=== PATIENT | female | born 1965 | race Caucasian/White ===

== ENCOUNTER 2018-06-26 19:05 | Emergency (ER) | payer OTHER ==
[~2018-06-26] VITALS: Ht 170.2 cm; Wt 163.3 kg
[~2018-06-26 19:05] MED LIST: ALBU90OI INH; ALBU90OI61 INH; ALLO100 PO; ASPI81CH PO; ASPI81EC PO; ATOR10; AZIT250 PO; AZIT500 PO; BUPR150T2; CODGUAEL PO; Cyclobenzaprine5 MG PO; DULO60 PO; ERGO50000 PO; FISH OIL PO; FISH1000 PO; FLUSAL2505 IH; GABA300 PO; GUAI600T33 PO; HYDACE5 PO; HYDACE5325 PO; HYDCHL12.5 PO; IBUP600 PO; IBUP800 PO; INSULANI SUBQ; INSULANPEN SC; LEVSOD100 PO; LEVSOD175 PO; LEVSOD200; LEVSOD50 PO; LEVSOD88 PO; LISHYD1012 PO; LISI5 PO; METF500; METF500 PO; METF500C PO; NAPR550 PO; Norco 5-325 Ta1 EACH PO; OMEG1CAP30 PO; OXYACE5T PO; PREN-16 PO; Prenatabs FA T1 EACH PO; RANI150 PO; ROSU10TA PO; RXCODGUASY PO; RXHYD5325 PO; RXNAPNA550 PO; SULTRIDS PO; VICODIN 5-3001 EACH PO; VITAMIN D22000 UNIT PO
[2018-06-26 20:07] LABS: BASOPHILS ABSOLUTE AUTO 0.05 K/mm3 (0.00-0.23); BASOPHILS PERCENT AUTO 0 % (0-2); EOSINOPHILS ABSOLUTE AUTO 0.01 K/mm3 (0.00-0.68); EOSINOPHILS PERCENT AUTO 0 % (0-6); Hematocrit 43.4 % (33.0-51.0); Hemoglobin 14.4 g/dL (11.5-16.0); IMMATURE GRAN ABSOLUTE AUTO 0.28 K/mm3 (0.00-0.10); IMMATURE GRAN PERCENT AUTO 2 % (0-1); LYMPHOCYTES ABSOLUTE AUTO 2.74 K/mm3 (0.84-5.20); LYMPHOCYTES PERCENT AUTO 21 % (21-46); MONOCYTES ABSOLUTE AUTO 0.51 K/mm3 (0.16-1.47); MONOCYTES PERCENT AUTO 4 % (4-13); Mean Corpuscular HGB 31.8 pg (26.0-34.0); Mean Corpuscular HGB Conc 33.2 g/dL (31.5-36.5); Mean Corpuscular Volume 96 fL (80-100); Mean Platelet Volume 9.1 fL (9.1-12.4); NEUTROPHILS ABSOLUTE AUTO 9.42 K/mm3 (1.96-9.15); NEUTROPHILS PERCENT AUTO 72 % (41-73); Platelet Count 342 K/mm3 (150-400); RDW Coefficient Variation 14.1 % (11.7-14.2); RDW Standard Deviation 49.1 fL (35.1-46.3); Red Blood Cell Count 4.53 M/mm3 (3.80-5.20); White Blood Cell Count 13.01 K/mm3 (4.00-11.30)
[2018-06-26 20:22] LABS: Albumin, Blood 3.7 g/dL (3.4-5.0); Albumin/Globulin Ratio 0.9 (0.8-1.8); Bilirubin, Total 0.2 mg/dL (0.1-1.0); Calcium, Blood 8.8 mg/dL (8.5-10.1); Creatinine, Blood 1.07 mg/dL (0.40-1.00); Globulin, Blood 4.3 g/dL (2.2-4.0); Potassium, Blood 4.8 mmol/L (3.5-5.5)
[2018-06-26] MEDS ORDERED: METF500C PO (20:28)
[2018-06-26] MEDS ORDERED: INSULANPEN SC (20:28)
[2018-06-26] MEDS ORDERED: ALLO300 PO (20:28)
[2018-06-26] MEDS ORDERED: ZESTORETIC 20-121 EA PO (20:29)
[2018-06-26] MEDS ORDERED: LEVSOD150 PO (20:30)
[2018-06-26] MEDS ORDERED: FISH OIL + D31 EACH PO (20:30)
[2018-06-26] MEDS ORDERED: Verotin-Gr Cap1 EACH PO (20:30)
[2018-06-26] MEDS ORDERED: ALBU90OI INH (20:31)
[2018-06-26] MEDS ORDERED: FLUT1DIS2 INH (20:31)
[2018-06-26] MEDS ORDERED: ERGO400 PO (20:31)
[2018-06-26] MEDS ORDERED: ATOR40TA PO (20:32)
== END 2018-06-26 21:53 | disposition home or self-care (01) ==
LOC: ER 19:05
PROVIDERS: Physician Assistant
DX: J44.1 Chronic obstructive pulmonary disease with (acute) exacerbation (principal); E11.9 Type 2 diabetes mellitus without complications; E78.00 Pure hypercholesterolemia, unspecified; I10 Essential (primary) hypertension; F17.200 Nicotine dependence, unspecified, uncomplicated; Z88.0 Allergy status to penicillin; Z88.5 Allergy status to narcotic agent; Z79.899 Other long term (current) drug therapy; Z79.4 Long term (current) use of insulin; Z79.51 Long term (current) use of inhaled steroids
CPT/HCPCS: 36415; 71046; 80053; 83880; 84484; 85025; 94640; 99284-25

== ENCOUNTER → 2018-11-22 | Outpatient (CLI) | payer OTHER ==
[~2018-11-22] MED LIST changes: +ALLO300 PO; +ATOR40TA PO; +ERGO400 PO; +FISH OIL + D31 EACH PO; +FLUT1DIS2 INH; +LEVSOD150 PO; +Verotin-Gr Cap1 EACH PO; +ZESTORETIC 20-121 EA PO
[2018-11-22 13:56] LABS: BASOPHILS ABSOLUTE AUTO 0.07 K/mm3 (0.00-0.23); BASOPHILS PERCENT AUTO 1 % (0-2); EOSINOPHILS ABSOLUTE AUTO 0.17 K/mm3 (0.00-0.68); EOSINOPHILS PERCENT AUTO 2 % (0-6); Hematocrit 39.6 % (33.0-51.0); Hemoglobin 13.8 g/dL (11.5-16.0); IMMATURE GRAN PERCENT AUTO 1 % (0-1); LYMPHOCYTES ABSOLUTE AUTO 3.66 K/mm3 (0.84-5.20); LYMPHOCYTES PERCENT AUTO 34 % (21-46); MONOCYTES ABSOLUTE AUTO 0.79 K/mm3 (0.16-1.47); MONOCYTES PERCENT AUTO 7 % (4-13); Mean Corpuscular HGB 31.4 pg (26.0-34.0); Mean Corpuscular HGB Conc 34.8 g/dL (31.5-36.5); Mean Corpuscular Volume 90 fL (80-100); NEUTROPHILS ABSOLUTE AUTO 6.14 K/mm3 (1.96-9.15); NEUTROPHILS PERCENT AUTO 56 % (41-73); RDW Coefficient Variation 14.5 % (11.7-14.2); RDW Standard Deviation 46.9 fL (35.1-46.3); White Blood Cell Count 10.93 K/mm3 (4.00-11.30)
[2018-11-22 13:59] LABS: Mean Platelet Volume 9.2 fL (9.1-12.4); Platelet Count 281 K/mm3 (150-400)
[2018-11-22 14:10] LABS: Albumin, Blood 4.2 g/dL (3.4-5.0); Albumin/Globulin Ratio 1.1 (0.8-1.8); Bilirubin, Total 0.4 mg/dL (0.1-1.0); Bun/Creatinine Ratio 14.7 (12.0-20.0); Calcium, Blood 8.7 mg/dL (8.5-10.1); Creatinine, Blood 1.02 mg/dL (0.40-1.00); Globulin, Blood 3.7 g/dL (2.2-4.0); Total Protein, Blood 7.9 g/dL (6.4-8.2)
== END | disposition home or self-care (01) ==
LOC: LAB SHORT 13:53 → LAB EV 13:53
PROVIDERS: Physician Assistant
DX: R10.9 Unspecified abdominal pain (principal)
CPT/HCPCS: 80053; 83690; 85025

== ENCOUNTER → 2018-11-26 | Outpatient (CLI) | payer OTHER ==
[2018-11-26 15:35] LABS: Adenovirus F 40/41 Not Detected (NOT DETECT); Astrovirus Not Detected (NOT DETECT); Campylobacter Sp Not Detected (NOT DETECT); Cryptosporidium Not Detected (NOT DETECT); Cyclospora Cayetanensis Not Detected (NOT DETECT); E. Coli O157 Not Detected (NOT DETECT); Entamoeba Histolytica Not Detected (NOT DETECT); Enteroaggregative E. coli-EAEC Not Detected (NOT DETECT); Enteropathogenic E. coli-EPEC Not Detected (NOT DETECT); Enterotoxigenic E. coli-ETEC Not Detected (NOT DETECT); Giardia Lamblia Not Detected (NOT DETECT); Norovirus GI/GII Not Detected (NOT DETECT); Plesiomonas Shigelloides Not Detected (NOT DETECT); Rotavirus A Not Detected (NOT DETECT); Salmonella Sp Not Detected (NOT DETECT); Sapovirus Not Detected (NOT DETECT); Shiga Toxin-prod E. coli-STEC Not Detected (NOT DETECT); Shigella/Enteroin E. coli-EIEC Not Detected (NOT DETECT); Vibrio Cholerae Not Detected (NOT DETECT); Vibrio Sp Not Detected (NOT DETECT); Yersinia Enterocolitica Not Detected (NOT DETECT)
== END ==
LOC: LAB 11:16 → LAB SHORT 11:16
PROVIDERS: Nurse Practitioner Family
DX: R19.7 Diarrhea, unspecified (principal)
CPT/HCPCS: 87507

== ENCOUNTER → 2019-04-28 | Outpatient (CLI) | payer OTHER ==
[2019-04-29 14:28] LABS: Adenovirus F 40/41 Not Detected (NOT DETECT); Astrovirus Not Detected (NOT DETECT); Campylobacter Sp Not Detected (NOT DETECT); Cryptosporidium Not Detected (NOT DETECT); Cyclospora Cayetanensis Not Detected (NOT DETECT); E. Coli O157 Not Detected (NOT DETECT); Entamoeba Histolytica Not Detected (NOT DETECT); Enteroaggregative E. coli-EAEC Not Detected (NOT DETECT); Enteropathogenic E. coli-EPEC Not Detected (NOT DETECT); Enterotoxigenic E. coli-ETEC Not Detected (NOT DETECT); Giardia Lamblia Not Detected (NOT DETECT); Norovirus GI/GII Not Detected (NOT DETECT); Plesiomonas Shigelloides Not Detected (NOT DETECT); Rotavirus A Not Detected (NOT DETECT); Salmonella Sp Not Detected (NOT DETECT); Sapovirus Not Detected (NOT DETECT); Shiga Toxin-prod E. coli-STEC Not Detected (NOT DETECT); Shigella/Enteroin E. coli-EIEC Not Detected (NOT DETECT); Vibrio Cholerae Not Detected (NOT DETECT); Vibrio Sp Not Detected (NOT DETECT); Yersinia Enterocolitica Not Detected (NOT DETECT)
== END | disposition home or self-care (01) ==
LOC: LAB 08:20 → LAB SHORT 08:20
PROVIDERS: Internal Medicine Gastroenterology
DX: R19.7 Diarrhea, unspecified (principal)
CPT/HCPCS: 0097U; 87324

== ENCOUNTER 2019-05-03 07:23 | Day surgery (SDC) | payer OTHER ==
[~2019-05-03] VITALS: Ht 170.2 cm; Wt 154.2 kg
--- NOTE | 2019-05-03 08:32 | NUR ---
Ambulatory in Day Surgery. Patient states colon prep results clear. History, Chart, Medications and Allergies reviewed before start of procedure. Patient confirms NPO status and agrees with scheduled surgery. Pre-Op teaching done. Pt verbalizes understanding. Lungs with expiratory rhonchi. Patient States Post-Procedure ride home has been arranged. Sister, Jessy, at bedside who is providing ride home.
--- NOTE | 2019-05-03 09:06 | NUR ---
05/03/[address] HERE TO PROVIDE ANESTHESIA CARE, PLEASE SEE ANESTHESIA RECORD FOR DETAILS. History, Chart, Medications and Allergies reviewed before start of procedure. PATIENT CONFIRMS NPO STATUS AND AGREES WITH SCHEDULED PROCEDURE. MONITOR INTACT WITH CONTINUOUS PULSE OXIMETRY AND INTERMITTENT BP. O2 VIA N/C INTACT THROUGHOUT SEDATION/PROCEDURE.
--- NOTE | 2019-05-03 10:12 | NUR ---
Discharge instructions reviewed with patient. Patient verbalizes understanding. Copy given to patient to take home. Discharged via wheelchair to private car for ride home.
== END 2019-05-03 23:18 | disposition home or self-care (01) ==
LOC: ORSCMMR 07:23 → ORD 09:00 → ORSCMMR 23:18
PROVIDERS: Internal Medicine Gastroenterology
PROC: 0DBM8ZX Excision of Descending Colon, Via Natural or Artificial Opening Endoscopic, Diagnostic (ICD-10-PCS; principal; 2019-05-03 09:00)
PROC: 0DBN8ZX Excision of Sigmoid Colon, Via Natural or Artificial Opening Endoscopic, Diagnostic (ICD-10-PCS; principal; 2019-05-03 09:00)
PROC: 0DBE8ZX Excision of Large Intestine, Via Natural or Artificial Opening Endoscopic, Diagnostic (ICD-10-PCS; principal; 2019-05-03 09:00)
DX: R19.7 Diarrhea, unspecified (principal); K52.832 Lymphocytic colitis; K63.5 Polyp of colon; Z86.010 Personal history of colon polyps; E11.9 Type 2 diabetes mellitus without complications; G47.33 Obstructive sleep apnea (adult) (pediatric); I10 Essential (primary) hypertension; E03.9 Hypothyroidism, unspecified; Z79.899 Other long term (current) drug therapy; Z79.4 Long term (current) use of insulin; F17.210 Nicotine dependence, cigarettes, uncomplicated; E66.01 Morbid (severe) obesity due to excess calories; Z68.43 Body mass index [BMI] 50.0-59.9, adult
CPT/HCPCS: 82947; 88305; J2704; J7120

== ENCOUNTER 2019-11-16 18:16 | Emergency (ER) | payer OTHER ==
[~2019-11-16] VITALS: Ht 170.2 cm; Wt 163.3 kg
[2019-11-16 19:23] LABS: BASOPHILS ABSOLUTE AUTO 0.05 K/mm3 (0.00-0.23); BASOPHILS PERCENT AUTO 0 % (0-2); EOSINOPHILS ABSOLUTE AUTO 0.25 K/mm3 (0.00-0.68); EOSINOPHILS PERCENT AUTO 2 % (0-6); Hematocrit 38.9 % (33.0-51.0); IMMATURE GRAN ABSOLUTE AUTO 0.11 K/mm3 (0.00-0.10); IMMATURE GRAN PERCENT AUTO 1 % (0-1); LYMPHOCYTES ABSOLUTE AUTO 3.84 K/mm3 (0.84-5.20); LYMPHOCYTES PERCENT AUTO 32 % (21-46); MONOCYTES ABSOLUTE AUTO 0.82 K/mm3 (0.16-1.47); MONOCYTES PERCENT AUTO 7 % (4-13); Mean Corpuscular HGB 31.5 pg (26.0-34.0); Mean Corpuscular HGB Conc 33.4 g/dL (31.5-36.5); Mean Corpuscular Volume 94 fL (80-100); Mean Platelet Volume 9.3 fL (9.1-12.4); NEUTROPHILS ABSOLUTE AUTO 6.93 K/mm3 (1.96-9.15); NEUTROPHILS PERCENT AUTO 58 % (41-73); Platelet Count 304 K/mm3 (150-400); RDW Coefficient Variation 14.6 % (11.7-14.2); Red Blood Cell Count 4.13 M/mm3 (3.80-5.20)
[2019-11-16 19:44] LABS: Albumin, Blood 3.7 g/dL (3.4-5.0); Alk Phos 101 U/L (50-136); Anion Gap 4 mmol/L (6-16); Aspartate Aminotrans (AST/SGOT 23 U/L (12-37); Bilirubin, Total 0.3 mg/dL (0.1-1.0); Blood Urea Nitrogen 15 mg/dL (8-24); Bun/Creatinine Ratio 14.9 (12.0-20.0); CO2, Blood 28 mmol/L (21-32); Calcium, Blood 9.1 mg/dL (8.5-10.1); Chloride, Blood 106 mmol/L (98-108); Creatinine, Blood 1.01 mg/dL (0.40-1.00); Globulin, Blood 3.8 g/dL (2.2-4.0); Glomerular Filtration Rate >60 (60-); Glucose, Blood 131 mg/dL (70-99); Potassium, Blood 4.3 mmol/L (3.5-5.5); Sodium, Blood 138 mmol/L (136-145); Total Protein, Blood 7.5 g/dL (6.4-8.2)
[2019-11-16 19:48] LABS: Troponin I <0.015 ng/mL (0.000-0.040)
[2019-11-16 19:50] LABS: Alanine Aminotransfer (ALT/SGP 25 U/L (12-78)
[2019-11-16] MEDS ORDERED: Zithromax250 MG PO (22:57)
[2019-11-16] MEDS ORDERED: Prednisone20 MG PO (22:57)
[2019-11-16] MEDS ORDERED: LIDO700A20 TOP (22:57)
[2019-11-16] MEDS ORDERED: Robaxin-750750 MG PO (22:57)
== END 2019-11-16 23:20 | disposition home or self-care (01) ==
LOC: ER 18:16
PROVIDERS: Physician Assistant
DX: J44.0 Chronic obstructive pulmonary disease with (acute) lower respiratory infection (principal); M54.5 Low back pain; E11.9 Type 2 diabetes mellitus without complications; I10 Essential (primary) hypertension; G47.30 Sleep apnea, unspecified; F17.200 Nicotine dependence, unspecified, uncomplicated; Z88.0 Allergy status to penicillin; Z88.5 Allergy status to narcotic agent; Z79.84 Long term (current) use of oral hypoglycemic drugs; Z79.899 Other long term (current) drug therapy
CPT/HCPCS: 36415; 71046; 72100; 80053; 83880; 84484; 85025; 93005; 93010; 94644; 96374; 96375; 99284-25; J2930; J3010

== ENCOUNTER → 2021-11-04 | Outpatient (CLI) | payer OTHER ==
[~2021-11-04] MED LIST changes: +LIDO700A20 TOP; +Prednisone20 MG PO; +Robaxin-750750 MG PO; +Zithromax250 MG PO
[2021-11-04 10:58] LABS: Source, Urine Clean Catch
[2021-11-04 12:15] LABS: Bilirubin, Urine Neg (Neg); Blood, Urine Neg (Neg); Glucose Qualitative, Urine Neg (Neg); Ketones, Urine Neg (Neg); Leukocyte Esterase, Urine 1+ (Neg); Nitrite, Urine Neg (Neg); Protein, Urine 1+ (Neg); Urobilinogen, Urine NORM (Normal)
[2021-11-04 12:22] LABS: Appearance, Urine Hazy (Clear); Color, Urine Pale Yellow (P-Yellow)
[2021-11-04 12:23] LABS: Bacteria Many /hpf; Mucus Mod (0-Heavy); Red Blood Cells, Urine 0-2 /hpf (0-2); Squamous Epithelial Cells Rare /hpf (Few)
== END ==
LOC: LAB 10:54 → LAB SHORT 10:54
PROVIDERS: Student in an Organized Health Care Education/Training Program
DX: R94.4 Abnormal results of kidney function studies (principal)
CPT/HCPCS: 81001

== ENCOUNTER → 2022-04-21 | Outpatient (CLI) | payer OTHER ==
[2022-04-21 12:24] LABS: BASOPHILS ABSOLUTE AUTO 0.07 K/mm3 (0.00-0.23); BASOPHILS PERCENT AUTO 1 % (0-2); EOSINOPHILS ABSOLUTE AUTO 0.23 K/mm3 (0.00-0.68); EOSINOPHILS PERCENT AUTO 2 % (0-6); Hematocrit 36.4 % (33.0-51.0); Hemoglobin 12.1 g/dL (11.5-16.0); IMMATURE GRAN ABSOLUTE AUTO 0.06 K/mm3 (0.00-0.10); IMMATURE GRAN PERCENT AUTO 1 % (0-1); LYMPHOCYTES ABSOLUTE AUTO 4.03 K/mm3 (0.84-5.20); LYMPHOCYTES PERCENT AUTO 36 % (21-46); MONOCYTES ABSOLUTE AUTO 0.83 K/mm3 (0.16-1.47); MONOCYTES PERCENT AUTO 7 % (4-13); Mean Corpuscular HGB 31.4 pg (26.0-34.0); Mean Corpuscular HGB Conc 33.2 g/dL (31.5-36.5); Mean Corpuscular Volume 95 fL (80-100); Mean Platelet Volume 9.9 fL (9.1-12.4); NEUTROPHILS ABSOLUTE AUTO 6.05 K/mm3 (1.96-9.15); NEUTROPHILS PERCENT AUTO 54 % (41-73); Platelet Count 330 K/mm3 (150-400); RDW Coefficient Variation 14.1 % (11.7-14.2); RDW Standard Deviation 48.5 fL (35.1-46.3); Red Blood Cell Count 3.85 M/mm3 (3.80-5.20); White Blood Cell Count 11.27 K/mm3 (4.00-11.30)
[2022-04-21 16:23] LABS: Anion Gap 7 mmol/L (6-16); Blood Urea Nitrogen 29 mg/dL (8-24); Bun/Creatinine Ratio 20.3 (12.0-20.0); CHOL/HDL RATIO 4.5; CO2, Blood 21 mmol/L (21-32); Calcium, Blood 9.8 mg/dL (8.5-10.1); Chloride, Blood 111 mmol/L (98-108); Cholesterol 152 mg/dL (50-200); Creatinine, Blood 1.43 mg/dL (0.40-1.00); Glomerular Filtration Rate 43 (60-); Glucose, Blood 85 mg/dL (70-99); HDL Cholesterol 34 mg/dL (>39); LDL/HDL RATIO 1.9; Low Density Lipoprotein Chol 63 mg/dL (0-110); Potassium, Blood 4.5 mmol/L (3.5-5.5); Sodium, Blood 139 mmol/L (136-145); Thyroid Stimulating Hormone 0.265 uIU/mL (0.360-4.800); Triglycerides 274 mg/dL (30-160); Very Low Density Lipoprot Chol 54 mg/dL (6-32)
== END | disposition home or self-care (01) ==
LOC: LAB 11:13 → LAB SHORT 11:13
PROVIDERS: Student in an Organized Health Care Education/Training Program
DX: E78.2 Mixed hyperlipidemia (principal); E11.8 Type 2 diabetes mellitus with unspecified complications; E03.9 Hypothyroidism, unspecified
CPT/HCPCS: 80048; 80061; 83036; 84443; 85025

== ENCOUNTER → 2022-05-08 | Outpatient (CLI) | payer OTHER ==
[2022-05-08 21:24] LABS: Campylobacter Sp Not Detected (NOT DETECT)
[2022-05-08 21:25] LABS: Adenovirus F 40/41 Not Detected (NOT DETECT); Astrovirus Not Detected (NOT DETECT); Cryptosporidium Not Detected (NOT DETECT); Cyclospora Cayetanensis Not Detected (NOT DETECT); E. Coli O157 Not Detected (NOT DETECT); Entamoeba Histolytica Not Detected (NOT DETECT); Enteroaggregative E. coli-EAEC Not Detected (NOT DETECT); Enteropathogenic E. coli-EPEC Not Detected (NOT DETECT); Enterotoxigenic E. coli-ETEC Not Detected (NOT DETECT); Giardia Lamblia Not Detected (NOT DETECT); Norovirus GI/GII Not Detected (NOT DETECT); Plesiomonas Shigelloides Not Detected (NOT DETECT); Rotavirus A Not Detected (NOT DETECT); Salmonella Sp Not Detected (NOT DETECT); Sapovirus Not Detected (NOT DETECT); Shiga Toxin-prod E. coli-STEC Not Detected (NOT DETECT); Shigella/Enteroin E. coli-EIEC Not Detected (NOT DETECT); Vibrio Cholerae Not Detected (NOT DETECT); Vibrio Sp Not Detected (NOT DETECT); Yersinia Enterocolitica Not Detected (NOT DETECT)
== END | disposition home or self-care (01) ==
LOC: LAB SHORT 13:41 → LAB 13:41
PROVIDERS: Internal Medicine Gastroenterology
DX: R19.7 Diarrhea, unspecified (principal)
CPT/HCPCS: 87507

== ENCOUNTER → 2025-07-04 | Outpatient (CLI) | payer OTHER ==
[~2025-07-04] MED LIST changes: +BREO ELLIPTA 11 EAC1 INH; +FISH OIL + D3 SOFTGE PO; -FISH OIL + D31 EACH PO; +FURO20 PO; +POTA20LUD PO
== END ==
LOC: LAB 11:18 → LAB SHORT 11:18
DX: C96.9 Malignant neoplasm of lymphoid, hematopoietic and related tissue, unspecified (principal)
CPT/HCPCS: 88173

== ENCOUNTER 2025-07-20 08:53 | Day surgery (SDC) | payer OTHER ==
[2025-07-20] VITALS (18 sets, daily range): BP systolic 82–166; BP diastolic 49–114
[~2025-07-20] VITALS: Ht 170.2 cm; Wt 176.1 kg
[~2025-07-20 08:53] MED LIST changes: +Dexamethasone Sod Phos 10 MG/ML 1ML VIAL ONE; +ESTRADIOL0.5 MG PO; +Midazolam HCl 1MG / ML 2ML Vial ONE; +Rocuronium Bromide 10 MG/ML 5ML Injection IV ONE; +SuccINYLCHOLINE Chloride 100 MG/5 ML 5MLSYR ONE; +Sugammadex Sodium 200 MG/2ML SDV (100 MG/ML) ONE; +ePHEDrine Sulfate 50 MG/ML 1ML Injection ONE
[2025-07-20] MEDS ORDERED: Tranexamic Acid 100 ML IV SCH (09:15)
[2025-07-20] MEDS ORDERED: Citric Acid/Sodium Citrate 30 ML BTL PO ONE (09:20)
[2025-07-20] MEDS ORDERED: Metoclopramide HCl 5MG / ML 2ML Vial IV ONE (09:20)
[2025-07-20] MEDS ORDERED: Ipratropium/Albuterol SulF 2.5-0.5MG/3 ML Amp INH ONE (09:20)
--- NOTE | 2025-07-20 10:06 | NUR ---
History, Chart, Medications and Allergies reviewed before start of procedure. Patient confirms NPO status and agrees with scheduled surgery. Pre-Op teaching done. Pt verbalizes understanding. Lungs clear T/O to Auscultation.
[2025-07-20] MEDS ORDERED: Dexmedetomidine HCL 200 MCG / 2 ML ONE (10:57)
[2025-07-20] MEDS ORDERED: Lidocaine HCl 4% 5 ML SDA ONE (10:58)
[2025-07-20] MEDS ORDERED: Oxymetazoline 0.05% Nasal Relief Spray 15mL BTL ONE ×2 (10:58→11:08)
[2025-07-20] MEDS ORDERED: Dexamethasone Sod Phos 10 MG/ML 1ML VIAL ONE (11:08)
[2025-07-20] MEDS ORDERED: Bupivacaine 0.5% W/EPI 1:200000 SDV 30 ML Vial ONE (11:08)
[2025-07-20] MEDS ORDERED: EPINEPhrine HCl 1 MG / ML 30ML Vial ONE (11:08)
[2025-07-20] MEDS ORDERED: Sugammadex Sodium 200 MG/2ML SDV (100 MG/ML) ONE (12:22)
[2025-07-20] MEDS ORDERED: FentaNYL Citrate 50 MCG/ML 2 ML Injection ONE ×2 (12:25→13:14)
[2025-07-20] MEDS ORDERED: Albuterol 2.5 MG/3 ML VIAL INH PRN (13:05)
[2025-07-20] MEDS ORDERED: FentaNYL Citrate 50 MCG/ML 2 ML Injection IV PRN (13:10)
[2025-07-20] MEDS ORDERED: Ondansetron HCl 2 MG / ML 2ML Vial IV PRN (13:10)
[2025-07-20] MEDS ORDERED: HydrALAZINE HCl 20 MG / ML 1ML Vial IV PRN (13:10)
[2025-07-20] MEDS ORDERED: ePHEDrine Sulfate 50 MG/ML 1ML Injection IV PRN (13:10)
[2025-07-20] MEDS ORDERED: Ketorolac Tromethamine 15mg Vial IV PRN (13:15)
[2025-07-20] MEDS ORDERED: Ketorolac Tromethamine 30mg Vial ONE (13:16)
--- NOTE | 2025-07-20 13:46 | NUR ---
Discharged via wheelchair to private car for ride home. Patient States Post-Procedure ride home has been arranged. Discharge instructions reviewed with patient. Patient verbalizes understanding. Copy given to patient to take home.
--- NOTE | 2025-07-20 15:01 | NUR ---
TO STEP POST LARYNGOSCOPY WITH BX. A/O X 3, TOLERABLE PAIN 5/10. ALYSON PO WELL. FEW SMALL CLOTS NOTED WITH COUGH. PT/FAMILY VERBALIZED UNDERSTANDING OF S/S BLEEDING AT HOME. ON 3L O2 WITH NC, SPO2 92-65%. HOME O2 AT BEDSIDE FOR DISCHARGE. VERBALIZED UNDERSTANDING OF DC INSTRUCTIONS/FOLLOW UP/MEDICATIONS/WOUND CARE. UP TO BEDSIDE TO CHANGE WITH ASSIST. TRANSFERED TO AND PLACED ON HOME O2 TANK. DC'D VIA TO PRIVATE CAR WITH LOGGING ASSISTANT.
== END 2025-07-20 15:00 | disposition home or self-care (01) ==
LOC: ORSCMMR 08:53 → ORD 10:30 → ORSCMMR 15:00
PROVIDERS: Otolaryngology
PROC: 0CBM8ZX Excision of Pharynx, Via Natural or Artificial Opening Endoscopic, Diagnostic (ICD-10-PCS; principal; 2025-07-20 10:30)
DX: C77.0 Secondary and unspecified malignant neoplasm of lymph nodes of head, face and neck (principal); G47.33 Obstructive sleep apnea (adult) (pediatric); E11.22 Type 2 diabetes mellitus with diabetic chronic kidney disease; I12.9 Hypertensive chronic kidney disease with stage 1 through stage 4 chronic kidney disease, or unspecified chronic kidney disease; N18.9 Chronic kidney disease, unspecified; J44.9 Chronic obstructive pulmonary disease, unspecified; E78.00 Pure hypercholesterolemia, unspecified; K21.9 Gastro-esophageal reflux disease without esophagitis; E66.01 Morbid (severe) obesity due to excess calories; Z68.44 Body mass index [BMI] 60.0-69.9, adult; I25.2 Old myocardial infarction; Z79.899 Other long term (current) drug therapy; Z79.84 Long term (current) use of oral hypoglycemic drugs; Z87.891 Personal history of nicotine dependence
CPT/HCPCS: 82947; 88305; 88312; A9270; J0165; J0330; J1100; J1885; J2003; J2250; J2704; J2765; J3010; J7120

== ENCOUNTER 2025-07-22 15:08 | Inpatient (IN) | payer OTHER ==
[~2025-07-22] VITALS: Ht 170.2 cm; Wt 177.2 kg
[~2025-07-22 15:08] MED LIST changes: -Dexamethasone Sod Phos 10 MG/ML 1ML VIAL ONE; -Midazolam HCl 1MG / ML 2ML Vial ONE; -Rocuronium Bromide 10 MG/ML 5ML Injection IV ONE; -SuccINYLCHOLINE Chloride 100 MG/5 ML 5MLSYR ONE; -Sugammadex Sodium 200 MG/2ML SDV (100 MG/ML) ONE; -ePHEDrine Sulfate 50 MG/ML 1ML Injection ONE
[2025-07-22 16:08] LABS: BASOPHILS ABSOLUTE AUTO 0.04 K/mm3 (0.00-0.23); BASOPHILS PERCENT AUTO 0 % (0-2); EOSINOPHILS ABSOLUTE AUTO 0.03 K/mm3 (0.00-0.68); EOSINOPHILS PERCENT AUTO 0 % (0-6); Hematocrit 33.9 % (33.0-51.0); Hemoglobin 10.5 g/dL (11.5-16.0); IMMATURE GRAN ABSOLUTE AUTO 0.13 K/mm3 (0.00-0.10); IMMATURE GRAN PERCENT AUTO 1 % (0-1); LYMPHOCYTES ABSOLUTE AUTO 3.09 K/mm3 (0.84-5.20); LYMPHOCYTES PERCENT AUTO 21 % (21-46); MONOCYTES ABSOLUTE AUTO 0.98 K/mm3 (0.16-1.47); MONOCYTES PERCENT AUTO 7 % (4-13); Mean Corpuscular HGB Conc 31.0 g/dL (31.5-36.5); Mean Corpuscular Volume 98 fL (80-100); NEUTROPHILS ABSOLUTE AUTO 10.75 K/mm3 (1.96-9.15); NEUTROPHILS PERCENT AUTO 72 % (41-73); NRBC ABSOLUTE 0.00 K/mm3 (0.00-0.02); NRBC Auto 0.0 /100 WBC (0.0-0.2); Platelet Count 263 K/mm3 (150-400); RDW Coefficient Variation 15.2 % (11.7-14.2); RDW Standard Deviation 54.2 fL (35.1-46.3)
[2025-07-22 16:11] LABS: pH Blood Venous 7.30 (7.34-7.37)
[2025-07-22 16:27] LABS: Alanine Aminotransfer (ALT/SGP 32.0 U/L (12-78); Albumin, Blood 3.3 g/dL (3.4-5.0); Albumin/Globulin Ratio 0.9 (0.8-1.8); Anion Gap 6.0 mmol/L (3-11); Aspartate Aminotrans (AST/SGOT 26.0 U/L (12-37); Bilirubin, Total 0.3 mg/dL (0.1-1.0); Blood Urea Nitrogen 29.0 mg/dL (8-24); CO2, Blood 31.0 mmol/L (21-32); Calcium, Blood 8.4 mg/dL (8.5-10.1); Chloride, Blood 102.0 mmol/L (98-108); Creatinine, Blood 1.48 mg/dL (0.40-1.00); Globulin, Blood 3.8 g/dL (2.2-4.0); Glucose, Blood 131.0 mg/dL (70-99); Potassium, Blood 5.1 mmol/L (3.5-5.5); Sodium, Blood 134.0 mmol/L (136-145); Total Protein, Blood 7.1 g/dL (6.4-8.2)
[2025-07-22] MEDS ORDERED: Albuterol 2.5 MG/3 ML VIAL INH SCH (17:40)
[2025-07-22] MEDS ORDERED: NS 1,000 ML IV SCH (17:40)
[2025-07-22] MEDS ORDERED: Ondansetron HCl 2 MG / ML 2ML Vial IV PRN (19:00)
[2025-07-22] MEDS ORDERED: Albuterol 2.5 MG/3 ML VIAL INH PRN (19:05)
[2025-07-22] MEDS ORDERED: Ipratropium/Albuterol SulF 2.5-0.5MG/3 ML Amp INH SCH (19:05)
[2025-07-22] MEDS ORDERED: FLU VACC TS2025-26(6MOS UP)/PF 45 MCG/0.5 ML SYRINGE IM SCH (19:05)
--- NOTE | 2025-07-22 20:30 | NUR ---
PT HERE VIA [facility] FROM ER. PT IS AMBULATORY TO MEDICAL FLOOR BED, HOWEVER PT DID GET DIZZY - EDUCATED PT ON CALLING FOR ASSISTANCE OOB, AND BED ALARM PLACED ON FOR PT SAFETY. PT IS A&OX4. PT ON HIGH FLOW NC AT 8L - CONTINOUS BIOX PLACED ON. LS ARE CLEAR TO UPPER LOBES, COARSE BLL. PT REPORTS SHE IS COUGHING UP BROWN SPUTUM - PAST HISTORY OF SMOKING. PT ALSO REPORTS A RECENT BIOPSY - SEE H&P. PT HAS UPPER DENTURES - DENTURE CUP PROVIDED. PT HAS HER OWN VERONICA HOSE ON - REPORTS SHE DOESN'T WEAR THEM AT NIGHT - WILL REMOVE. PT ALSO WEARS A CPAP AT HOME - RT CALLED FOR ASSISTANCE - CPAP AT HOME THEY DIDN'T ANTICIPATE SHE WOULD BE STAYING. AT BEDSIDE. NO SKIN BREAKDOWN, EXCEPT RIGHT HAND HAS A SCAB FROM A "DOG AT HOME" - APPX 09/24 DIME STEPHANIE. CALL LIGHT WITHIN REACH. FLUIDS AT BEDSIDE. BELONGINGS WITHIN REACH. BED IN LOW POSITION.
[2025-07-22 20:40] VITALS: BP 152/79
--- NOTE | 2025-07-22 20:45 | NUR ---
JESSICA IV FLUSHED PRIOR TO ZITHROMAX - PT REPORTED SHE "COULD TASTE IT" WHEN I FLUSHED THE IV - IV INFILTRATED ABOUT 5 MINUTES IN. CALLED PHARMACIST, LAURI - SHE REPORTED TO ELEVATE AND PLACE A WARM PACK ON - WHICH I DID. IV DC'D TO JESSICA. ZITHROMAX STARTED IN LEFT LFA. VERONICA HOSE REMOVED.
[2025-07-22] MEDS ORDERED: ALLO300 PO (20:48)
[2025-07-22] MEDS ORDERED: BUPR100 PO (20:50)
[2025-07-22] MEDS ORDERED: LEVSOD100 PO ×2 (20:56)
[2025-07-22] MEDS ORDERED: Lisinopril-Hct1 EAC4 PO ×2 (20:58)
[2025-07-22] MEDS ORDERED: PREG100 PO ×2 (20:58)
[2025-07-22] MEDS ORDERED: TIZA4 PO ×2 (21:00)
[2025-07-22] MEDS ORDERED: ROPI1 PO ×2 (21:00)
[2025-07-22] MEDS ORDERED: OXYC5 PO ×2 (21:02)
[2025-07-22 21:19] LABS: Influenza A, PCR NEGATIVE (NEGATIVE); Influenza B, PCR NEGATIVE (NEGATIVE); Resp Syncytial Virus, PCR NEGATIVE (NEGATIVE); SARS-Cov-2 (COVID-19) PCR, MMC NEGATIVE (NEGATIVE)
--- NOTE | 2025-07-22 22:30 | NUR ---
DRESSING REMOVED FROM JESSICA IV SITE - SITE WNL NOW - PT DENIES ANY PAIN, NO DISCOLORATION OR SWELLING PRESENT.
--- NOTE | 2025-07-22 22:50 | NUR ---
CPAP PLACED ON PER PT REQUEST. CALL LIGHT WITHIN REACH. BED ALARM ON FOR PT SAFETY. FLUIDS AT BEDSIDE. BED IN LOW POSITION. BELONGINGS WITHIN REACH.
--- NOTE | 2025-07-23 01:08 | NUR ---
SPOKE TO DIGNA EDMOND ABOUT CARE PLAN NOT COMPLETE - I ATTEMPTED TO FIX THIS WITH THE ADMISSION PROCESS - STILL NOT COMING THOUGHOUT COMPLETE - WILL REPORT THIS OFF TO AM SHIFT.
[2025-07-23 03:41] VITALS: BP 117/54
[2025-07-23 04:34] LABS: pH Blood Venous 7.35 (7.34-7.37)
[2025-07-23 04:52] LABS: Hematocrit 33.5 % (33.0-51.0); Hemoglobin 10.6 g/dL (11.5-16.0); Mean Corpuscular HGB Conc 31.6 g/dL (31.5-36.5); Mean Corpuscular Volume 97 fL (80-100); NRBC ABSOLUTE 0.00 K/mm3 (0.00-0.02); NRBC Auto 0.0 /100 WBC (0.0-0.2); Platelet Count 231 K/mm3 (150-400); RDW Coefficient Variation 14.7 % (11.7-14.2); RDW Standard Deviation 52.3 fL (35.1-46.3)
[2025-07-23 05:50] LABS: Anion Gap 9.0 mmol/L (3-11); Blood Urea Nitrogen 36.0 mg/dL (8-24); CO2, Blood 26.0 mmol/L (21-32); Calcium, Blood 8.4 mg/dL (8.5-10.1); Chloride, Blood 103.0 mmol/L (98-108); Creatinine, Blood 1.32 mg/dL (0.40-1.00); Glucose, Blood 293.0 mg/dL (70-99); Potassium, Blood 6.2 mmol/L (3.5-5.5); Sodium, Blood 132.0 mmol/L (136-145)
[2025-07-23] MEDS ORDERED: Levothyroxine Sodium 0.15 MG Tab PO SCH (06:00)
--- NOTE | 2025-07-23 06:33 | NUR ---
SHIFT SUMMARY - NO ACUTE CHANGES SINCE ADMIT LAST NOC. PT WORE HER CPAP FOR APPX 4 HOURS LAST NOC. OTHERWISE PT HAS BEEN WEARING HER HF NC 8L O2 - SATS WNL THROUGHOUT THE NIGHT. POTASSIUM LEVEL ELEVATED THIS MORNING - NOTIFIED, AND REQUESTED A REDRAW. TELE ORDERED - CALLED ANAMIKA CALVIN, WITH AN UPDATE ON THIS ORDER. AWAITING TELE MONITOR. PT MEDICATED X1 WITH GOOD RELIEF OF THROAT PAIN. PT HAS BEEN UP TO THE BRP WITH A SBA WITHOUT ANY COMPLICATIONS.
[2025-07-23] MEDS ORDERED: Insulin Human Lispro 100 Units/ML 3ML Syringe SC SCH ×2 (07:30→11:59)
[2025-07-23 07:50] VITALS: BP 134/65
[2025-07-23] MEDS ORDERED: NS 500 ML IV SCH (08:00)
[2025-07-23] MEDS ORDERED: Insulin Regular 100 UNIT/ML 10ML Vial SC ONE (08:00)
[2025-07-23] MEDS ORDERED: Enoxaparin 40 MG/0.4 ML SYR SC SCH (09:00)
[2025-07-23 11:06] LABS: Anion Gap 9.0 mmol/L (3-11); Blood Urea Nitrogen 34.0 mg/dL (8-24); CO2, Blood 25.0 mmol/L (21-32); Calcium, Blood 8.6 mg/dL (8.5-10.1); Chloride, Blood 103.0 mmol/L (98-108); Creatinine, Blood 1.18 mg/dL (0.40-1.00); Glucose, Blood 298.0 mg/dL (70-99); Potassium, Blood 5.2 mmol/L (3.5-5.5); Sodium, Blood 132.0 mmol/L (136-145)
[2025-07-23 11:52] VITALS: BP 141/62
[2025-07-23 14:28] LABS: Anion Gap 9.0 mmol/L (3-11); Blood Urea Nitrogen 33.0 mg/dL (8-24); CO2, Blood 28.0 mmol/L (21-32); Calcium, Blood 8.5 mg/dL (8.5-10.1); Chloride, Blood 100.0 mmol/L (98-108); Creatinine, Blood 1.22 mg/dL (0.40-1.00); Glucose, Blood 326.0 mg/dL (70-99); Potassium, Blood 5.3 mmol/L (3.5-5.5); Sodium, Blood 132.0 mmol/L (136-145)
[2025-07-23 15:22] VITALS: BP 126/60
--- NOTE | 2025-07-23 16:52 | NUR ---
SHIFT SUMMARY: PATIENT A/OX4, PLEASANT AND COOPERATIVE c CARE. PATIENT DENIES CP/PRESSURE, SOB, N/V AND DIZZINESS. PATIENT ON TELE, SR IN 60'S-70'S BPM. PATIENT AM POTASSIUM LAB WAS 6.1, RECEIVED OT DOSE 10 UNITS HUMULIN R, LOKELEMA AND 500 MLS NS BOLUS PER ORDER. PATIENT REPEAT POTASSIUM LAB DRAWN AT 1030 WAS 5.2 AND DID ANOTHER REPEAT POTASSIUM LAB DRAWN AT 1400 AND CAME BACK 5.3. PATIENT REQUESTING TO GO HOME TODAY, DR. SIDHU IS AWARE c REQUEST AND SPOKE TO PATIENT AT BEDSIDE. THIS AFTERNOON PATIENT THREE DAUGHTER VISITED AND CONVINCED HER TO STAY ONE MORE NIGHT, WHICH PATIENT AGREED, BUT REQUESTING TO GO HOME TOMORROW FOR SURE. PATIENT O2 AT BASELINE 3L NC SATTING 92-96%, ON NURSING INFORMATICS SPECIALIST. PATIENT MEDICATED FOR MYRICK/THROAT PAIN PER EMAR. PATIENT HAS GOOD APPETITE, CONTINENT OF BLADDER AND HAS BEEN AMBULATING TO BATHROOM c SBA. PATIENT SHOWERED THIS AFTERNOON c MINIMAL ASSIST FROM DAUGHTER. PATIENT SAT-UP IN RECLINER CHAIR FOR THE MOST PART OF SHIFT, TOLERATED WELL. VITAL SIGNS REVIEWED. CALL LIGHT IN REACH.
[2025-07-23 19:54] VITALS: BP 127/57
[2025-07-23] MEDS ORDERED: Insulin Glargine 100 Unit/ML 3 ML SYR SC SCH ×2 (21:00)
[2025-07-23] MEDS ORDERED: Insulin Glargine-Yfgn 100 Unit/mL 3 ML SYR SC SCH (21:00)
[2025-07-24 00:24] VITALS: BP 138/58
--- NOTE | 2025-07-24 05:27 | NUR ---
SHIFT SUMMARY NO ACUTE CHANGES OVERNIGHT. MAINTAINS O2 SAT >=92% ON BASELINE 3L NC AND CPAP WITH 3L BLED IN. A&OX4, AMBULATORY WITH 1P SBA TO RESTROOM. DIZZINESS IMPROVED. ROSMERY AND HYPERKALEMIA IMPROVING. SCHEDULED OUTPT PET SCAN FOR 07/31/25 TO ASSESS L SUBMANDIBULAR SCC. PT PLANS TO PURSUE TREATMENT. ALSO HAS CONCERNING, RAISED, BLEEDING LESION ON UPPER BACK CONSISTENT WITH PAST SCCs. PT NOT YET ESTABLISHED WITH A NC MANAGER. PAIN MANAGEMENT PER EMAR FOR L SIDED MYRICK AND L THROAT PAIN RELATED TO SCC WITH OXYCODONE Q4H.
[2025-07-24 05:33] LABS: BASOPHILS ABSOLUTE AUTO 0.01 K/mm3 (0.00-0.23); BASOPHILS PERCENT AUTO 0 % (0-2); EOSINOPHILS ABSOLUTE AUTO 0.01 K/mm3 (0.00-0.68); EOSINOPHILS PERCENT AUTO 0 % (0-6); Hematocrit 32.4 % (33.0-51.0); Hemoglobin 10.8 g/dL (11.5-16.0); IMMATURE GRAN ABSOLUTE AUTO 0.08 K/mm3 (0.00-0.10); IMMATURE GRAN PERCENT AUTO 1 % (0-1); LYMPHOCYTES ABSOLUTE AUTO 1.17 K/mm3 (0.84-5.20); LYMPHOCYTES PERCENT AUTO 9 % (21-46); MONOCYTES ABSOLUTE AUTO 0.49 K/mm3 (0.16-1.47); MONOCYTES PERCENT AUTO 4 % (4-13); Mean Corpuscular HGB Conc 33.3 g/dL (31.5-36.5); NEUTROPHILS ABSOLUTE AUTO 10.79 K/mm3 (1.96-9.15); NEUTROPHILS PERCENT AUTO 86 % (41-73); NRBC ABSOLUTE 0.00 K/mm3 (0.00-0.02); NRBC Auto 0.0 /100 WBC (0.0-0.2); RDW Coefficient Variation 14.5 % (11.7-14.2); RDW Standard Deviation 48.1 fL (35.1-46.3)
[2025-07-24 05:35] LABS: Mean Corpuscular Volume 92 fL (80-100)
[2025-07-24 05:44] LABS: Anion Gap 10.0 mmol/L (3-11); Blood Urea Nitrogen 37.0 mg/dL (8-24); CO2, Blood 26.0 mmol/L (21-32); Calcium, Blood 8.8 mg/dL (8.5-10.1); Chloride, Blood 101.0 mmol/L (98-108); Creatinine, Blood 1.15 mg/dL (0.40-1.00); Glucose, Blood 298.0 mg/dL (70-99); Potassium, Blood 6.0 mmol/L (3.5-5.5); Sodium, Blood 131.0 mmol/L (136-145)
[2025-07-24 06:08] LABS: Platelet Count 233 K/mm3 (150-400)
[2025-07-24 07:32] VITALS: BP 139/70
[2025-07-24] MEDS ORDERED: Insulin Regular 100 UNIT/ML 10ML Vial IV ONE (08:03)
[2025-07-24] MEDS ORDERED: IPRAT-ALBUT 0.5-3 ML INH ×2 (10:29)
[2025-07-24 14:05] LABS: Source, Urine Clean Catch
[2025-07-24 14:10] LABS: Bilirubin, Urine Neg (Neg); Glucose Qualitative, Urine Neg (Neg); Ketones, Urine Neg (Neg); Leukocyte Esterase, Urine Neg (Neg); Protein, Urine Neg (Neg); Specific Gravity, Urine 1.015 (1.003-1.022); Urobilinogen, Urine NORM (Normal)
[2025-07-24 14:33] LABS: Color, Urine Pale Yellow (P-Yellow)
[2025-07-24 14:34] LABS: Red Blood Cells, Urine Not Seen /hpf (0-2); White Blood Cells, Urine 0-2 /hpf (0-5)
[2025-07-24 14:52] VITALS: BP 137/69
[2025-07-24] MEDS ORDERED: TIZA4 PO ×2 (15:05)
[2025-07-24] MEDS ORDERED: BASAGLAR K100 UNIT/3 SC ×2 (15:05)
[2025-07-24] MEDS ORDERED: PRED20 PO ×2 (15:10)
[2025-07-24] MEDS ORDERED: HUMALOG KW100 UNIT/1 SC ×2 (15:10)
[2025-07-24] MEDS ORDERED: AZIT500 PO ×2 (15:11)
[2025-07-24] MEDS ORDERED: Enoxaparin 40 MG/0.4 ML SYR SC SCH (21:00)
== END 2025-07-24 16:10 | disposition home health service (06) | DRG 189 ==
LOC: ER 15:08 → MEDS 15:09 → ENPENDDIS 07-24 14:43 → MEDS 07-24 16:10
PROVIDERS: Emergency Medicine; Nurse Practitioner Acute Care; Student in an Organized Health Care Education/Training Program; ADMIT Student in an Organized Health Care Education/Training Program
PROC: 5A0935A Assistance with Respiratory Ventilation, Less than 24 Consecutive Hours, High Flow/Velocity Cannula (ICD-10-PCS; principal; 2025-07-22)
PROC: 5A09357 Assistance with Respiratory Ventilation, Less than 24 Consecutive Hours, Continuous Positive Airway Pressure (ICD-10-PCS; 2025-07-23)
DX: J96.21 Acute and chronic respiratory failure with hypoxia (principal); J44.1 Chronic obstructive pulmonary disease with (acute) exacerbation; E87.29 Other acidosis; Z68.43 Body mass index [BMI] 50.0-59.9, adult; N17.9 Acute kidney failure, unspecified; J96.02 Acute respiratory failure with hypercapnia; E66.01 Morbid (severe) obesity due to excess calories; G47.33 Obstructive sleep apnea (adult) (pediatric); C08.0 Malignant neoplasm of submandibular gland; M10.9 Gout, unspecified; I12.9 Hypertensive chronic kidney disease with stage 1 through stage 4 chronic kidney disease, or unspecified chronic kidney disease; E11.22 Type 2 diabetes mellitus with diabetic chronic kidney disease; N18.30 Chronic kidney disease, stage 3 unspecified; E78.00 Pure hypercholesterolemia, unspecified; E03.9 Hypothyroidism, unspecified; E86.0 Dehydration; R22.43 Localized swelling, mass and lump, lower limb, bilateral; G89.29 Other chronic pain; R07.9 Chest pain, unspecified; E11.65 Type 2 diabetes mellitus with hyperglycemia; Z87.891 Personal history of nicotine dependence; Z88.0 Allergy status to penicillin; Z88.5 Allergy status to narcotic agent; Z85.828 Personal history of other malignant neoplasm of skin; Z99.81 Dependence on supplemental oxygen
CPT/HCPCS: 36415; 71045; 80048; 80053; 81001; 82803; 82947; 84100; 84132; 85025; 85027; 87086; 87637; 93005; 93010; 94640; 94660; 94664; 94762; 96361; 96365; 96372; 96374; 96375; 96376; 99285-25; A9270; G0378; J0456; J1650; J1815; J2919; J7030; J7040; J7050; J7512

== ENCOUNTER → 2025-07-28 | Outpatient (CLI) | payer OTHER ==
[~2025-07-28] MED LIST changes: +BASAGLAR K100 UNIT/3 SC; +BUPR100 PO; +HUMALOG KW100 UNIT/1 SC; +IPRAT-ALBUT 0.5-3 ML INH; +Lisinopril-Hct1 EAC4 PO; +OXYC5 PO; +PRED20 PO; +PREG100 PO; +ROPI1 PO; +TIZA4 PO
== END ==
LOC: LAB SHORT 13:54 → LAB 13:54
PROVIDERS: Otolaryngology
DX: C77.0 Secondary and unspecified malignant neoplasm of lymph nodes of head, face and neck (principal)
CPT/HCPCS: 87625; 88305; 88342

== ENCOUNTER 2025-09-07 08:26 | Observation (INO) | payer OTHER ==
[~2025-09-07] VITALS: Ht 167.6 cm; Wt 172.7 kg
[2025-09-07 11:03] LABS: Prothrombin Time Results 11.4 Sec (9.7-11.5)
[2025-09-07 11:07] LABS: BASOPHILS ABSOLUTE AUTO 0.03 K/mm3 (0.00-0.23); BASOPHILS PERCENT AUTO 0 % (0-2); EOSINOPHILS ABSOLUTE AUTO 0.04 K/mm3 (0.00-0.68); EOSINOPHILS PERCENT AUTO 0 % (0-6); Hematocrit 36.2 % (33.0-51.0); Hemoglobin 11.5 g/dL (11.5-16.0); IMMATURE GRAN ABSOLUTE AUTO 0.05 K/mm3 (0.00-0.10); IMMATURE GRAN PERCENT AUTO 1 % (0-1); LYMPHOCYTES ABSOLUTE AUTO 1.59 K/mm3 (0.84-5.20); LYMPHOCYTES PERCENT AUTO 18 % (21-46); MONOCYTES ABSOLUTE AUTO 0.83 K/mm3 (0.16-1.47); MONOCYTES PERCENT AUTO 9 % (4-13); Mean Corpuscular HGB Conc 31.8 g/dL (31.5-36.5); Mean Corpuscular Volume 96 fL (80-100); NEUTROPHILS ABSOLUTE AUTO 6.40 K/mm3 (1.96-9.15); NEUTROPHILS PERCENT AUTO 72 % (41-73); NRBC ABSOLUTE 0.00 K/mm3 (0.00-0.02); NRBC Auto 0.0 /100 WBC (0.0-0.2); Platelet Count 235 K/mm3 (150-400); RDW Coefficient Variation 14.8 % (11.7-14.2); RDW Standard Deviation 50.6 fL (35.1-46.3)
[2025-09-07 11:12] LABS: Alanine Aminotransfer (ALT/SGP 38.0 U/L (12-78); Albumin, Blood 3.4 g/dL (3.4-5.0); Albumin/Globulin Ratio 0.9 (0.8-1.8); Anion Gap 10.0 mmol/L (3-11); Aspartate Aminotrans (AST/SGOT 30.0 U/L (12-37); Bilirubin, Total 0.4 mg/dL (0.1-1.0); Blood Urea Nitrogen 25.0 mg/dL (8-24); CO2, Blood 27.0 mmol/L (21-32); Calcium, Blood 9.0 mg/dL (8.5-10.1); Chloride, Blood 104.0 mmol/L (98-108); Creatinine, Blood 1.15 mg/dL (0.40-1.00); Globulin, Blood 3.6 g/dL (2.2-4.0); Glucose, Blood 104.0 mg/dL (70-99); Potassium, Blood 4.8 mmol/L (3.5-5.5); Sodium, Blood 136.0 mmol/L (136-145); Total Protein, Blood 7.0 g/dL (6.4-8.2)
[2025-09-07] MEDS ORDERED: FLU VACC TS2025-26(6MOS UP)/PF 45 MCG/0.5 ML SYRINGE IM SCH (11:50)
[2025-09-07] MEDS ORDERED: NS 1,000 ML IV SCH (11:55)
[2025-09-07] MEDS ORDERED: LEVSOD100 PO (13:10)
[2025-09-07] MEDS ORDERED: OXYC1L PO (13:11)
[2025-09-07 14:10] VITALS: BP 164/68
[2025-09-07] MEDS ORDERED: ATOR80 PO (14:41)
[2025-09-07] MEDS ORDERED: ONDA4 PO (14:42)
[2025-09-07] MEDS ORDERED: Lidocaine 2% Jelly Uro-Jet ONE (15:04)
[2025-09-07] MEDS ORDERED: Midazolam HCl 1MG / ML 2ML Vial ONE (15:27)
[2025-09-07] MEDS ORDERED: FentaNYL Citrate 50 MCG/ML 2 ML Injection ONE ×2 (15:27→16:57)
[2025-09-07] MEDS ORDERED: NS 1,000 ML IV ONE (15:28)
--- NOTE | 2025-09-07 15:33 | NUR ---
PT ARRIVED VIA STRETCHER AND WAS ABLE TO SELF TRANSFER TO HOSPITAL BED, 3L NC AT BASELINE, SKIN ASSESSMENT DONE WITH ANAMIKA ARITA. PT RATES PAIN TO THROAT 3/10 AND DOES NOT NEED PAIN MEDICATION AT THIS TIME. STATES AT HOME IS ON SOFT DIET AND HAS BEEN HAVING DIFFICULTY WITH SWALLOWING MEDICATIONS. PLAN FOR PORT ACCESS AND PEG TUBE PLACEMENT. DAUGHTER AT BEDSIDE. CALL LIGHT IN REACH. PT OFF UNIT FOR SURGICAL PROCEDURE AT 1535.
[2025-09-07] MEDS ORDERED: NS 500 ML IV ONE (16:06)
--- NOTE | 2025-09-07 16:15 | NUR ---
PALLIATIVE CARE CONSULT: CONSULT RECEIVED FOR CANCER, AD/POLST, ADVANCED CARE PLANNING. REVIEWED MEDICAL RECORD. NO POLST/AD FOUND ON FILE OR THROUGH [facility]. PT IS FULL CODE, EXPECTED TO HAVE PEGTUBE AND PORT PLACEMENT FOR CONTINUED CANCER TREATMENT.
[2025-09-07] MEDS ORDERED: CeFAZolin Sodium 2,000 MG VIAL ONE ×2 (16:26)
[2025-09-07] MEDS ORDERED: NS 100 ML IV ONE (16:26)
[2025-09-07] MEDS ORDERED: NS 0 ML IV ONE (16:27)
[2025-09-07] MEDS ORDERED: Insulin Human Lispro 100 Units/ML 3ML Syringe SC SCH (16:30)
--- NOTE | 2025-09-07 17:33 | NUR ---
Pyxis discrepancy. After label drier procedure with Dr. Aviles, Fentanyl was incorrectly wasted at the medical centers. Amount used in procedure was 225 mcg and 75 mcg wasted afterwards. 100 mcg waste accidentally entered into pyxis. Pharmacy contacted and notified of error. Drug wasted by Andrew Snyder RN and witnessed by Avani Damon RN.
[2025-09-07 17:35] VITALS: BP 144/69
[2025-09-07 17:58] VITALS: BP 145/66
--- NOTE | 2025-09-07 19:14 | NUR ---
LATE ENTRY: 1744-PT ARRIVED VIA HOSPITAL BED FROM SURGERY, ALERT AND ORIENTED. NEW RIGHT UPPER CHEST PORT WITH TRANSPARENT DRESSING IN PLACE, CDI, AREA PINK, SURGICAL INCISION APPROXIMATED INTACT. VSS, IVF STARTED, NPO ORER- WILL HAVE MUSIC INTERN CLARIFY ORDER WITH NIGHT PROVIDER-REGARDING DIET ORDER. PT VOIDED X1 AFTER ARRIVING FROM SURGERY, STANDBY WITH 3L NC (BASELINE HOME 02 3L). POST OP VS IN PROGRESS. CALL LIGHT INREACH.
[2025-09-07] MEDS ORDERED: FentaNYL Citrate 50 MCG/ML 2 ML Injection IV PRN (20:40)
[2025-09-07 21:10] VITALS: BP 145/58
--- NOTE | 2025-09-07 23:46 | NUR ---
CALLED HOSPITALIST PATIENT INFORMED ME THAT THE IS FOR HER IS TO DC HOME TOMORROW. A MEDIPORT WAS SUCCESSFULLY PLACED ON PREVIOUS SHIFT FOR ONGOING CANCER TREATMENT. THE ATTEMPT TO PLACE THE G TUBE WAS UNSUCCESSFUL AND CANNOT BE DONE AT OUR FACILITY. THE PATIENT DOES TOLERATE A SOFT DIET AT HOME WITHOUT CHOKING. AND HER MEDS CAN BE CRUSHED WITH APPLESAUCE. THE PATIENT DID REQUEST THAT HER HOME MEDICATIONS BE GIVEN THIS SHIFT. HOSPITALIST INFORMED. NEW ORDERS ENTERED IN EMAR.
[2025-09-08 01:29] VITALS: BP 151/58
--- NOTE | 2025-09-08 03:45 | NUR ---
SHIFT SUMMARY ADMITTED FOR MEDIPORT AND G TUBE PLACEMENT/DYSPHAGIA. FULL CODE. MEDIPORT PLACED BY IR CONSULT ALAN. G TUBE NOT PLACED, SEE PREVIOUS NOTE. THE PATIENT INFORMS ME THAT THE PLAN IS FOR DC HOME TODAY TO CONTINUE OUTPT CANCER TREATMENT. PT IS ABLE TO TOLERATE SOFT FOOD. SHE TOLERATES MEDS CRUSHED IN APPLESAUCE WELL. SHE IS A STANDBY ASSIST- BRP. PALLIATIVE CARE IS CONSULTED. SHE IS A&O X4. NS INFUSING ORDERED. SHE IS ON 3 LPM O2 AT BASELINE. SHE USES A CPAP @ [facility]. HX OF COPD, GLF'S, THROAT CANCER.
[2025-09-08 04:01] VITALS: BP 147/67
[2025-09-08 07:39] VITALS: BP 141/71
--- NOTE | 2025-09-08 13:23 | NUR ---
DISCHARGE 1314 PATIENT LEFT BY WHEELCHAIR WITH HER DAUGHTER TO HOME. PATIENT LEFT WITH ALL HER BELONGINGS AND IN A STABLE CONDITION. HARD SCRIPT GIVEN TO PATIENT. DISCHARGE INSTRUCTIONS REVIEWED, EDUCATION PROVIDED. LEFT UPPER ARM IV REMOVED.
== END 2025-09-08 13:22 | disposition home or self-care (01) ==
LOC: ER 08:26 → MEDS 08:27
PROVIDERS: Emergency Medicine; ADMIT Internal Medicine
DX: R13.10 Dysphagia, unspecified (principal); C10.9 Malignant neoplasm of oropharynx, unspecified; C79.9 Secondary malignant neoplasm of unspecified site; J44.9 Chronic obstructive pulmonary disease, unspecified; J96.11 Chronic respiratory failure with hypoxia; E11.9 Type 2 diabetes mellitus without complications; M10.9 Gout, unspecified; G47.33 Obstructive sleep apnea (adult) (pediatric); E78.00 Pure hypercholesterolemia, unspecified; E03.9 Hypothyroidism, unspecified; I10 Essential (primary) hypertension; F17.210 Nicotine dependence, cigarettes, uncomplicated; Z79.84 Long term (current) use of oral hypoglycemic drugs; Z79.890 Hormone replacement therapy; Z79.899 Other long term (current) drug therapy; Z88.0 Allergy status to penicillin; Z88.5 Allergy status to narcotic agent
CPT/HCPCS: 36561; 49440; 76937; 77001; 80053; 82947; 85025; 85610; 94660; 94760; 94762; 97116; 97161; 97530; 99152; 99153; 99284; A9270; C1769; C1788; C1887; G0378; J0690; J1642; J2250; J3010; J7030; J7040